=== PATIENT | male | born 1990 | race Caucasian/White ===

== ENCOUNTER 2020-06-07 23:54 | Observation (INO) ==
[2020-06-08] MEDS ORDERED: Morphine Sulfate 2 MG/ML SYRINGE IVP ONE (00:14)
[2020-06-08 00:29] LABS: Basophils # 0.1 K/mcL (0.0-0.2); Basophils % 0.7 %; Eosinophils # 0.1 K/mcL (0.0-0.6); Eosinophils % 0.7 %; Hematocrit 48.4 % (37.5-50.1); Hemoglobin 15.9 g/dL (12.9-16.9); Lymphocytes # 3.5 K/mcL (0.6-4.6); Lymphocytes % 22.7 %; Mean Corpuscular HGB Conc 32.9 g/dL (31.6-35.5); Mean Corpuscular Hemoglobin 28.7 pg (28.0-33.3); Mean Corpuscular Volume 87.4 fL (83.0-100.0); Mean Platelet Volume 10.9 fL (9.4-12.4); Monocytes # 1.1 K/mcL (0.0-1.3); Monocytes % 6.9 %; Neutrophils # 10.5 K/mcL (1.6-8.9); Platelet Count 312 K/mcL (140-400); Red Blood Count 5.54 M/mcL (4.19-5.50); Red Cell Distribution Width 13.4 % (11.5-14.5); White Blood Count 15.4 K/mcL (4.3-11.1)
[2020-06-08 00:45] LABS: BUN/Creatinine Ratio 10 (6-26); Blood Urea Nitrogen 12 mg/dL (6-20); Calcium 9.9 mg/dL (8.6-10.3); Carbon Dioxide 24 mEq/L (23-29); Chloride 101 mEq/L (98-107); Glucose 96 mg/dL (70-105); Osmolality,Calculated 286 (280-300); Potassium 3.8 mEq/L (3.5-5.1); Sodium 138 mEq/L (136-145); eGFR For African Americans > 60 (> 60); eGFR For Non-African Americans > 60 (> 60)
[2020-06-08] MEDS ORDERED: Ondansetron 4 MG/2 ML VIAL IVP ONE (01:08)
[2020-06-08 01:16] LABS: Bilirubin,Urine Negative (Negative); Blood,Urine Negative (Negative); Clarity,Urine Clear (Clear); Color,Urine Light-Yellow (Yellow); Glucose,Urine (UA) Normal (Normal); Ketones,Urine Negative (Negative); Leukocyte Esterase,Urine Negative (Negative); Nitrite,Urine Negative (Negative); PH,Urine 6.5 pH Units (5.0-8.0); Protein,Urine Trace mg/dL (Neg-Trace); Specific Gravity,Urine 1.015 (1.010-1.025); Urobilinogen,Urine Normal (Normal)
[2020-06-08] MEDS ORDERED: *HR* HYDROmorphone (PF) 1 MG/ML SYRINGE IVP ONE ×2 (02:03→04:01)
[2020-06-08] MEDS ORDERED: Naloxone 0.4 MG/ML INJ IVP PRN (05:24)
[2020-06-08] MEDS ORDERED: Ketorolac 15 MG/ML VIAL IVP PRN (05:24)
[2020-06-08] MEDS: Ondansetron 4 MG/2 ML VIAL IVP PRN ×2 (05:43→14:30)
[2020-06-08] MEDS: Ringers Solution, Lactated 1,000 ML IVC SCH ×2 (08:36→14:31)
[2020-06-08] MEDS: lisinopriL 10 MG TABLET PO SCH (13:00)
[2020-06-09 09:01] LABS: BUN/Creatinine Ratio 13 (6-26); Blood Urea Nitrogen 14 mg/dL (6-20); Calcium 9.7 mg/dL (8.6-10.3); Carbon Dioxide 26 mEq/L (23-29); Chloride 99 mEq/L (98-107); Glucose 105 mg/dL (70-105); Magnesium 1.9 mg/dL (1.6-2.6); Osmolality,Calculated 279 (280-300); Phosphorous 3.5 mg/dL (2.7-4.5); Sodium 134 mEq/L (136-145); eGFR For African Americans > 60 (> 60); eGFR For Non-African Americans > 60 (> 60)
[2020-06-09] MEDS: lisinopriL 10 MG TABLET PO SCH (09:57)
[2020-06-09 10:50] VITALS: BP 105/73
== END 2020-06-09 13:46 | disposition home or self-care (01) ==
LOC: 3ANU 23:54 → EMEROOARM 23:54 → SUATTDRO 06-08 05:50 → 3ANU 06-08 07:45
PROVIDERS: ADMIT Internal Medicine; ATTEND Internal Medicine